=== PATIENT | male | born 1990 | race Caucasian/White ===

== ENCOUNTER 2016-06-03 16:46 | Emergency (ER) | payer MEDICAID ==
[2016-06-03] MEDS ORDERED: HYDROcod/ACETAM 5/325 MG TABLET PO STA (20:29)
[2016-06-03] MEDS ORDERED: CYCLOBENZAPRINE 10 MG TABLET PO STA (20:29)
[2016-06-03] MEDS ORDERED: CYCLOBENZAPRINE 10 MG TABLET PO ONE (20:45)
[2016-06-03] MEDS ORDERED: HYDROcod/ACETAM 5/325 MG TABLET ONE (20:45)
== END 2016-06-03 20:55 | disposition home or self-care (01) ==
DX: M54.6 Pain in thoracic spine (principal); F17.200 Nicotine dependence, unspecified, uncomplicated
CPT/HCPCS: 99283; A9270

== ENCOUNTER 2016-08-11 10:30 | Emergency (ER) | payer MEDICAID ==
[2016-08-11] MEDS ORDERED: IBUPROFEN 800 MG TABLET PO ONE (12:27)
[2016-08-11] MEDS: IBUPROFEN 800 MG TABLET PO STA (12:29)
== END 2016-08-11 14:22 | disposition home or self-care (01) ==
DX: R07.89 Other chest pain (principal); Z82.49 Family history of ischemic heart disease and other diseases of the circulatory system; S29.011A Strain of muscle and tendon of front wall of thorax, initial encounter; X50.0XXA Overexertion from strenuous movement or load, initial encounter; Y93.89 Activity, other specified; Y92.89 Other specified places as the place of occurrence of the external cause; Y99.0 Civilian activity done for income or pay; F17.200 Nicotine dependence, unspecified, uncomplicated
CPT/HCPCS: 36415; 71010; 80053; 83690; 84484; 85025; 93005; 93010; 99283; 99284; A9270

== ENCOUNTER 2017-02-16 07:58 | Emergency (ER) | payer MEDICAID ==
[2017-02-16 08:29] LABS: BILIRUBIN,URINE NEGATIVE (NEGATIVE)
[2017-02-16] MEDS ORDERED: ONDANSETRON 4 MG/2 ML VIAL IVP STA (08:40)
[2017-02-16] MEDS ORDERED: LIDOCAINE PATCH 5% TOP STA (08:40)
[2017-02-16 08:45] LABS: UA CHARGE (STRIP ONLY) YES; UR CULTURE IF IND NOT INDICATED
[2017-02-16] MEDS ORDERED: ONDANSETRON ODT 4 MG TABLET ONE (08:49)
[2017-02-16] MEDS ORDERED: LIDOCAINE PATCH 5% TOP ONE (08:50)
--- NOTE | 2017-02-16 08:51 | ED Physician Documentation ---
History of Present Illness - Stated complaint Stated Complaint: VOMITTING, BACK PX - Chief complaint Chief Complaint: Abd Pain - Additonal information Additional information: hx from pt 26 male NVD for about 3 hr and low left back pain - unclear but seems to have been triggered by retching no urinary sx no blood in stool or vomit no bad food sick contacts or travel Review of Systems Constitutional: denies: Fever, Chills Throat: denies: Sore throat Cardiac: denies: Chest pain / pressure Respiratory: denies: Dyspnea, Cough GI: reports: Nausea, Vomiting, Diarrhea. denies: Abdominal Pain, Hematemesis, Bloody / black stool : denies: Dysuria, Hematuria Musculoskeletal: reports: Back pain. denies: Neck pain Neurologic: denies: Focal weakness, Numbness Endocrine: denies: Easy bruising / bleeding Immunocompromised: denies: Immunocompromised PD PAST MEDICAL HISTORY - Past Medical History Past Medical History: No Respiratory: Asthma - Past Surgical History Past Surgical History: Yes - Present Medications Home Medications: Ambulatory Orders Medication Instructions Recorded Confirmed Ibuprofen [Motrin] 400 mg PO Q6H PRN #30 tablet 02/16/17 Lidocaine Patch 5% [Lidoderm Patch] 1 each TOP DAILY PRN #10 patch 02/16/17 Ondansetron Odt [Zofran] 4 mg TL Q6H PRN #10 tablet 02/16/17 - Allergies Allergies/Adverse Reactions: Allergies Allergy/AdvReac Type Severity Reaction Status Date / Time No Known Drug Allergies Allergy Verified 06/03/16 20:49 - Social History Does the pt smoke?: Yes Smoking Status: Current every day smoker Does the pt drink ETOH?: Yes Does the pt have substance abuse?: No - Immunizations Immunizations are current?: Yes PD ED PE NORMAL - Vitals Vital signs reviewed: Yes - General General: Alert and oriented X 3 - HEENT HEENT: PERRL - Neck Neck: Supple, no meningeal sign - Cardiac Cardiac: RRR - Respiratory Respiratory: No respiratory distress, Clear bilaterally - Abdomen Abdomen: Soft, Non tender - Back Back: No spinal TTP, Other (L low back TTP and limited ROM gold twisting, no focal redness swellign warmth) - Neuro Neuro: No motor deficit, No sensory deficit Results - Vitals Vitals: Vital Signs - 24 hr 09/18/17 09/18/17 08:08 09:19 Temperature 36.9 C 36.4 C L Heart Rate 85 88 Respiratory 16 15 Rate Blood Pressure 136/80 H 114/83 H O2 Saturation 98 97 Oxygen O2 Source Room air - Labs Labs: Laboratory Tests 02/16/17 08:15 Urine Color STRAW Urine Clarity CLEAR Urine pH 6.0 Ur Specific [place] <=1.005 Urine Protein NEGATIVE Urine Glucose (UA) NEGATIVE Urine Ketones NEGATIVE Urine Occult Blood NEGATIVE Urine Nitrite NEGATIVE Urine Bilirubin NEGATIVE Urine Urobilinogen 0.2 (NORMAL) Ur Leukocyte Esterase NEGATIVE Ur Microscopic Review NOT INDICATED Urine Culture Comments NOT INDICATED PD MEDICAL DECISION MAKING - ED course ED course: NVD for few hr with no bad food sick contacts or travel - likely viral - better with zofran back stiull hurts despite lido add motrin seems muscular - no neuro sx dc Departure - Departure Disposition: 01 Home, Self Care Clinical Impression: Diarrhea Qualifiers: Diarrhea type: unspecified type Qualified Code(s): R19.7 - Diarrhea, unspecified Back pain Qualifiers: Back pain location: low back pain Chronicity: acute Back pain laterality: left Sciatica presence: without sciatica Qualified Code(s): M54.5 - Low back pain Vomiting Qualifiers: Vomiting type: unspecified Vomiting Intractability: non-intractable Nausea presence: with nausea Qualified Code(s): R11.2 - Nausea with vomiting, unspecified Condition: Good Instructions: ED Gastroenteritis Viral, ED Neck Back Pain General Prescriptions: Lidocaine Patch 5% [Lidoderm Patch] 1 each TOP DAILY PRN #10 patch PRN Reason: Pain Ibuprofen [Motrin] 400 mg PO Q6H PRN #30 tablet PRN Reason: Pain Ondansetron Odt [Zofran] 4 mg TL Q6H PRN #10 tablet PRN Reason: Nausea / Vomiting Forms: Activity restrictions
[2017-02-16 09:19] VITALS: BP 114/83
[2017-02-16] MEDS ORDERED: IBUPROFEN 400 MG TABLET PO STA (10:16)
[2017-02-16] MEDS ORDERED: ONDANSETRON ODT 4 MG TABLET TL STA (10:18)
[2017-02-16] MEDS ORDERED: IBUPROFEN 400 MG TABLET PO ONE (10:29)
== END 2017-02-16 10:49 | disposition home or self-care (01) ==
LOC: ED 07:58
DX: R11.2 Nausea with vomiting, unspecified (principal); R19.7 Diarrhea, unspecified; M54.5 Low back pain; F17.200 Nicotine dependence, unspecified, uncomplicated
CPT/HCPCS: 81003; 96374; 99283; 99284; A9270; Q0162; 81001; 87086

== ENCOUNTER 2018-05-18 17:31 | Emergency (ER) | payer MEDICAID ==
--- NOTE | 2018-05-18 20:34 | ED Physician Documentation ---
PD HPI UPPER EXT INJURY - Stated complaint Stated Complaint: LT THUMB LAC/INJ - Chief complaint Chief Complaint: Laceration PD PAST MEDICAL HISTORY - Past Medical History Respiratory: Asthma - Past Surgical History Past Surgical History: Yes - Present Medications Home Medications: Ambulatory Orders Medication Instructions Recorded Confirmed Ibuprofen [Motrin] 400 mg PO Q6H PRN #30 tablet 02/16/17 Lidocaine Patch 5% [Lidoderm Patch] 1 each TOP DAILY PRN #10 patch 02/16/17 Ondansetron Odt [Zofran] 4 mg TL Q6H PRN #10 tablet 02/16/17 - Allergies Allergies/Adverse Reactions: Allergies Allergy/AdvReac Type Severity Reaction Status Date / Time No Known Drug Allergies Allergy Verified 06/03/16 20:49 - Social History Does the pt smoke?: Yes Smoking Status: Current every day smoker Does the pt drink ETOH?: Yes Does the pt have substance abuse?: No - Immunizations Immunizations are current?: No Immunizations: TDAP >10years/unknown Results - Vitals Vitals: Vital Signs - 24 hr 05/18/18 17:40 Temperature 36.6 C Heart Rate 88 Respiratory 16 Rate Blood Pressure 134/99 H O2 Saturation 96 Oxygen O2 Source Room air
--- NOTE | 2018-05-18 21:11 | ED Physician Documentation ---
PD HPI UPPER EXT INJURY - Stated complaint Stated Complaint: LT THUMB LAC/INJ - Chief complaint Chief Complaint: Laceration - History obtained from History obtained from: Patient - History of Present Illness Location: Left, Finger (thumb) Type of injury: Laceration (from broken coffee cup; denies FB in wound.) Where injury occurred: Home Timing - onset: Today Associated symptoms: Numbness (distal to the lac). No: Weakness Contributing factors: No: Anticoagulated Similar symptoms before: Has not had sx before Recently seen: Not recently seen Review of Systems Skin: reports: Laceration (s) Neurologic: denies: Near syncope PD PAST MEDICAL HISTORY - Past Medical History Respiratory: Asthma - Past Surgical History Past Surgical History: Yes - Present Medications Home Medications: Ambulatory Orders Medication Instructions Recorded Confirmed Ibuprofen [Motrin] 400 mg PO Q6H PRN #30 tablet 02/16/17 Lidocaine Patch 5% [Lidoderm Patch] 1 each TOP DAILY PRN #10 patch 02/16/17 Ondansetron Odt [Zofran] 4 mg TL Q6H PRN #10 tablet 02/16/17 - Allergies Allergies/Adverse Reactions: Allergies Allergy/AdvReac Type Severity Reaction Status Date / Time No Known Drug Allergies Allergy Verified 06/03/16 20:49 - Social History Does the pt smoke?: Yes Smoking Status: Current every day smoker Does the pt drink ETOH?: Yes Does the pt have substance abuse?: No - Immunizations Immunizations are current?: No Immunizations: TDAP >10years/unknown PD ED PE NORMAL - Vitals Vital signs reviewed: Yes - General General: Alert and oriented X 3, No acute distress, Well developed/nourished - Derm Derm: Normal color, Warm and dry - Extremities Extremities: Other (left thumb with horizontal lac at mid portion distal phalanx palmar side, into the fat pad tissue. No FB. less sensation distal to the lac, on ulnar side. ) Results - Vitals Vitals: Oxygen O2 Source Room air Procedures - Laceration (location) left thumb Length in cm: 1 Wound type: Linear, Into subcut fat, Clean Neurovascular status: Motor intact, Vascular intact. No: Sensory intact (decreased sensation distal to the lac just on ulnar side.) Tendon involvement: No: Tendon Injury Anesthesia: Lidocaine 2% Wound Preparation: Other (cleansed with tap water) Skin layer closure: Nylon, Interrupted, Size #-0 - enter number (4), Sutures - enter # (4) Other: Patient tolerated well, No complications PD MEDICAL DECISION MAKING - ED course Complexity details: considered differential, d/w patient Departure - Departure Disposition: 01 Home, Self Care Clinical Impression: Thumb laceration Qualifiers: Encounter type: initial encounter Damage to nail status: without damage Foreign body presence: without foreign body Laterality: left Qualified Code(s): S61.012A - Laceration without foreign body of left thumb without damage to nail, initial encounter Condition: Stable Record reviewed to determine appropriate education?: Yes Instructions: ED Laceration Hand Comments: It is okay to wash and shower. Clean off the wound twice a day with soap and water, or peroxide and water. Apply some antibiotic ointment to it to keep it moist. Also to watch for signs of infection such as purulence, redness or increasing pain. Return to your primary care or the ER at the specified time for suture removal. Suture removal 8-10 days. Tylenol or ibuprofen if needed for pains. Discharge Date/Time: 05/18/18 21:43
[2018-05-18 21:43] VITALS: BP 128/78
== END 2018-05-18 21:43 | disposition home or self-care (01) ==
LOC: ED 17:31
DX: S61.012A Laceration without foreign body of left thumb without damage to nail, initial encounter (principal); W45.8XXA Other foreign body or object entering through skin, initial encounter; Y92.009 Unspecified place in unspecified non-institutional (private) residence as the place of occurrence of the external cause; F17.200 Nicotine dependence, unspecified, uncomplicated
CPT/HCPCS: 12001; 99282; 99283

== ENCOUNTER 2019-09-06 13:15 | Emergency (ER) | payer MEDICAID ==
--- NOTE | 2019-09-06 13:21 | ED Physician Documentation ---
PD HPI NVD - Stated complaint Stated Complaint: NVD - History obtained from History obtained from: Patient - History of Present Illness Timing - onset: How many days ago (6) Timing - duration: Days (6) Timing - details: Abrupt onset, Still present (had nausea and diarrhea abruptly for 2 days, then decreased symptoms. Keeping some fluids down. But diarrhea persisted and then with nausea again yesterday, vomited again overnight. Thought he would be better by now. with similar symptoms started day before him and is mostly better now.) Associated symptoms: Abdominal pain (cramping initially, and now with upper pains.). No: Fever, Chest pain, Near syncope / syncope Contributing factors: Sick contact ( with similar but kids are not ill.). No: Bad food, Travel, Recent antibiotics Similar symptoms before: Has not had sx before Review of Systems Constitutional: reports: Myalgias. denies: Fever, Chills Nose: denies: Rhinorrhea / runny nose, Congestion Throat: denies: Sore throat Respiratory: denies: Cough GI: reports: Abdominal Pain (cramping intermittent, and now some upper abd pains with vomiting.), Nausea, Vomiting, Diarrhea. denies: Abdominal Swelling, Hematemesis, Bloody / black stool Skin: denies: Rash, Lesions Neurologic: reports: Generalized weakness. denies: Focal weakness, Numbness, Near syncope PD PAST MEDICAL HISTORY - Past Medical History Respiratory: Asthma GI: None - Past Surgical History Past Surgical History: Yes - Present Medications Home Medications: Ambulatory Orders Medication Instructions Recorded Confirmed Dicyclomine HCl 10 mg PO TID PRN #12 capsule 09/06/19 Diphenoxylate/Atropine [Lomotil] 1 each PO QID PRN #16 tablet 09/06/19 Famotidine 20 mg PO DAILY #15 tablet 09/06/19 Ondansetron Odt [Zofran] 4 mg TL Q6H PRN #15 tablet 09/06/19 - Allergies Allergies/Adverse Reactions: Allergies Allergy/AdvReac Type Severity Reaction Status Date / Time No Known Drug Allergies Allergy Verified 09/06/19 13:18 - Social History Does the pt smoke?: Yes Smoking Status: Current every day smoker Does the pt drink ETOH?: Yes Does the pt have substance abuse?: No - Immunizations Immunizations are current?: No Immunizations: TDAP >10years/unknown PD ED PE NORMAL - Vitals Vital signs reviewed: Yes - General General: Alert and oriented X 3, No acute distress, Well developed/nourished - HEENT HEENT: Pharynx benign. No: Moist mucous membranes - Neck Neck: Supple, no meningeal sign, No adenopathy - Cardiac Cardiac: RRR, No murmur - Respiratory Respiratory: Clear bilaterally - Abdomen Abdomen: Normal bowel sounds, Soft, Non distended, No organomegaly, Other (some tender in upper abd without guarding nor percussion tenderness. ) - Back Back: No CVA TTP - Derm Derm: Normal color, Warm and dry - Extremities Extremities: No deformity, No tenderness to palpate - Neuro Neuro: Alert and oriented X 3, No motor deficit, Normal speech Results - Vitals Vitals: Vital Signs - 24 hr 09/06/19 09/06/19 09/06/19 13:18 13:42 14:55 Temperature 36.8 C 36.8 C Heart Rate 91 86 68 Respiratory 18 16 Rate Blood Pressure 120/74 130/83 H 115/53 L O2 Saturation 97 99 100 09/06/19 15:55 Temperature Heart Rate 60 Respiratory 17 Rate Blood Pressure 127/78 O2 Saturation 100 Oxygen O2 Source Room air - Labs Labs: Laboratory Tests 09/06/19 09/06/19 13:50 13:50 WBC 8.8 RBC 5.19 Hgb 16.2 Hct 47.0 MCV 90.6 MCH 31.2 H MCHC 34.5 RDW 12.3 Plt Count 265 MPV 9.8 Neut # (Auto) 5.6 Lymph # (Auto) 2.3 Jenkins # (Auto) 0.4 Eos # (Auto) 0.3 Baso # (Auto) 0.0 Absolute Nucleated RBC 0.00 Nucleated RBC % 0.0 Sodium 137 Potassium 4.4 Chloride 103 Carbon Dioxide 28 Anion Gap 6.0 BUN 12 Creatinine 1.0 Estimated GFR (MDRD) 90 Glucose 103 H Calcium 9.6 Total Bilirubin 1.8 H AST 24 ALT 31 Alkaline Phosphatase 68 Total Protein 8.1 Albumin 4.5 Globulin 3.6 Albumin/Globulin Ratio 1.3 Lipase 29 PD MEDICAL DECISION MAKING - ED course Complexity details: re-evaluated patient (abd not tender in lower abd still. Some in epigastric area. No peritoneal signs. I did not feel imaging needed. ), considered differential, d/w patient Departure - Departure Disposition: 01 Home, Self Care Clinical Impression: Nausea vomiting and diarrhea, Dehydration Condition: Stable Record reviewed to determine appropriate education?: Yes Instructions: ED Gastroenteritis Vs Food Poison Prescriptions: Dicyclomine HCl 10 mg PO TID PRN #12 capsule PRN Reason: Abdominal Pain Diphenoxylate/Atropine [Lomotil] 1 each PO QID PRN #16 tablet PRN Reason: Diarrhea Famotidine 20 mg PO DAILY #15 tablet Ondansetron Odt [Zofran] 4 mg TL Q6H PRN #15 tablet PRN Reason: Nausea / Vomiting Comments: Ondansetron if needed for nausea. Lomotil for diarrhea as needed. Use Tylenol if needed for pains or cramps and you can also use dicyclomine for intestinal cramps. Small frequent fluids and bland food initially and progress as tolerated. Your stomach would be irritated from having been throwing up for several days so take some acid reducing medicine such as famotidine daily for a week or so. Recheck if not improving well into tomorrow or the next day. I wrote a work note for tomorrow if needed. If the symptoms, particularly diarrhea, extend into another 3 to 5 days, then bring us sample of the diarrhea with you for recheck and we can test specifically for bacterial type infections Forms: Activity restrictions Discharge Date/Time: 09/06/19 16:27
[2019-09-06] MEDS ORDERED: SODIUM CHLORIDE 0.9% 1,000 ML IV ONE ×2 (13:45→13:46)
[2019-09-06] MEDS ORDERED: ONDANSETRON 4 MG/2 ML VIAL IVP STA ×2 (13:45→15:12)
[2019-09-06] MEDS ORDERED: FAMOTIDINE 20 MG/2 ML VIAL IVP STA (13:45)
[2019-09-06] MEDS ORDERED: KETOROLAC 15 MG/ML VIAL IVP STA (13:45)
[2019-09-06] MEDS ORDERED: DIPHENOX/ATROPINE 2.5/0.025 MG TABLET PO STA (13:45)
[2019-09-06 14:01] LABS: BASOPHILS % (AUTO) 0.5 %; EOSINOPHILS # (AUTO) 0.3 10^3/uL (0.0-0.7); EOSINOPHILS % (AUTO) 3.9 %; HGB - HEMOGLOBIN 16.2 g/dL (14.0-18.0); LYMPHOCYTES # (AUTO) 2.3 10^3/uL (1.5-3.5); LYMPHOCYTES % (AUTO) 26.5 %; MEAN CORPUSCULAR HEMOGLOBIN 31.2 pg (27.0-31.0); MEAN CORPUSCULAR HGB CONC 34.5 g/dL (32.0-36.0); MEAN CORPUSCULAR VOLUME 90.6 fL (80.0-94.0); MEAN PLATELET VOLUME 9.8 fL (7.4-11.4); MONOCYTES # (AUTO) 0.4 10^3/uL (0.0-1.0); MONOCYTES % (AUTO) 4.9 %; NEUTROPHILS # (AUTO) 5.6 10^3/uL (1.5-6.6); NEUTROPHILS % (AUTO) 63.4 %; PLT - PLATELET COUNT 265 10^3/uL (130-450); RED BLOOD COUNT 5.19 10^6/uL (4.70-6.10); RED CELL DISTRIBUTION WIDTH 12.3 % (12.0-15.0); WHITE BLOOD COUNT 8.8 x10^3/uL (4.8-10.8)
[2019-09-06 14:13] LABS: ALBUMIN 4.5 g/dL (3.2-5.5); ALBUMIN/GLOBULIN RATIO 1.3 (1.0-2.2); BILIRUBIN,TOTAL 1.8 mg/dL (0.2-1.0); CALCIUM 9.6 mg/dL (8.5-10.3); TOTAL PROTEIN 8.1 g/dL (6.7-8.2)
[2019-09-06 15:55] VITALS: BP 127/78
== END 2019-09-06 16:27 | disposition home or self-care (01) ==
LOC: ED 13:15
DX: E86.0 Dehydration (principal); R11.2 Nausea with vomiting, unspecified; R19.7 Diarrhea, unspecified; F17.200 Nicotine dependence, unspecified, uncomplicated
CPT/HCPCS: 36415; 80053; 83690; 85025; 96361; 96374; 96375; 99283; A9270

== ENCOUNTER 2020-02-07 11:39 | Emergency (ER) | payer MEDICAID ==
[2020-02-07 11:52] VITALS: BP 123/77
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
[2020-02-07] MEDS ORDERED: TETANUS/DIPHTHERIA/PERTUSSIS 0.5 ML SYRINGE IM ONE (13:15)
[2020-02-07] MEDS ORDERED: SILVER SULFADIAZINE CREAM 25 GM TUBE TOP STA (13:20)
== END 2020-02-07 13:51 | disposition home or self-care (01) ==
LOC: ED 11:39
DX: T24.331A Burn of third degree of right lower leg, initial encounter (principal); X15.8XXA Contact with other hot household appliances, initial encounter; Y93.89 Activity, other specified; F17.200 Nicotine dependence, unspecified, uncomplicated
CPT/HCPCS: 90471; 90715; 99283; 99284; A9270

== ENCOUNTER 2020-02-10 14:08 | Outpatient (CLI) | payer MEDICAID | END 2020-02-10 14:09 | disposition home or self-care (01) | LOC: COV 14:08 | PROVIDERS: ATTEND Surgery | DX: Z01.818 Encounter for other preprocedural examination (principal); T24.33 Burn of third degree of lower leg; Z20.828 Contact with and (suspected) exposure to other viral communicable diseases ==

== ENCOUNTER 2020-02-13 12:19 | Day surgery (SDC) | payer MEDICAID ==
[2020-02-13] MEDS ORDERED: LIDOCAINE-MPF 2% 5 ML VIAL IM ONE (12:20)
[2020-02-13] MEDS ORDERED: PROPOFOL 200 MG/20 ML VIAL IVP ONE (12:20)
[2020-02-13] MEDS ORDERED: MIDAZOLAM 2 MG/2 ML VIAL IVP ONE (12:20)
[2020-02-13] MEDS ORDERED: LACTATED RINGERS 1,000 ML IV ONE ×3 (12:57→16:12)
[2020-02-13] MEDS ORDERED: CEFAZOLIN SODIUM IN 0.9 % NACL 2 GM/100 ML BAG IV ONE (13:04)
[2020-02-13] MEDS ORDERED: LIDOCAINE 1%-EPI 1:100000 20 ML MDV ONE (15:16)
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
[2020-02-13] MEDS ORDERED: BUPIVACAINE 0.25%-EPI 1:200000 PF 30 ML VIAL ONE (15:17)
[2020-02-13] MEDS ORDERED: LIDOCAINE 1%-EPI 1:100000 20 ML MDV SUBQ ONE ×2 (15:33→16:02)
[2020-02-13] MEDS ORDERED: BUPIVACAINE 0.5%-EPI 1:200000 PF 30 ML VIAL SUBQ ONE ×2 (15:33→16:01)
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
[2020-02-13] MEDS ORDERED: MORPHINE 2 MG/ML CARPUJECT IVP PRN (16:30)
[2020-02-13] MEDS ORDERED: METOCLOPRAMIDE 10 MG/2 ML VIAL IVP PRN (16:30)
[2020-02-13] MEDS ORDERED: fentaNYL 100 MCG/2 ML VIAL IVP PRN (16:30)
[2020-02-13] MEDS ORDERED: ATROPINE ABBOJECT 1 MG/10 ML SYRINGE IVP PRN (16:30)
[2020-02-13] MEDS ORDERED: ePHEDrine 50 MG/ML VIAL IVP PRN (16:30)
[2020-02-13] MEDS ORDERED: NALOXONE 0.4 MG/ML VIAL IVP PRN (16:30)
[2020-02-13] MEDS ORDERED: ONDANSETRON 4 MG/2 ML VIAL IVP PRN (16:30)
[2020-02-13] MEDS ORDERED: HYDROmorphone 0.5 MG/0.5 ML SYRINGE IVP PRN (16:30)
[2020-02-13 16:52] VITALS: BP 112/81
[2020-02-13] MEDS ORDERED: LACTATED RINGERS 1,000 ML IV SCH (17:00)
--- NOTE | 2020-02-13 17:30 | ANESTHESIA POST OP EVALUATION ---
Anesthesia Post Eval - Post Anesthesia Eval Vitals: Last Vital Signs Temp 36.2 C L 02/13/20 16:51 Pulse 79 02/13/20 16:51 Resp 16 02/13/20 16:51 BP 112/81 H 02/13/20 16:51 Pulse Ox 99 02/13/20 16:51 CV Function Including HR & BP: positive: Stable Pain Control: positive: Satisfactory Nausea & Vomiting: positive: Negative Mental Status: positive: Patient Participates Respiratory Status: Airway Patent Hydration Status: Satisfactory Anesthesia Complications: positive: None
== END 2020-02-13 12:20 | disposition home or self-care (01) ==
LOC: SDS 12:19
PROVIDERS: ATTEND Surgery
PROC: 0HBKXZZ Excision of Right Lower Leg Skin, External Approach (ICD-10-PCS; principal; 2020-02-13 14:00)
DX: L90.5 Scar conditions and fibrosis of skin (principal); T24.33 Burn of third degree of lower leg; T79.8XXS Other early complications of trauma, sequela; X03 Exposure to controlled fire, not in building or structure; E66.01 Morbid (severe) obesity due to excess calories; Z68.41 Body mass index [BMI] 40.0-44.9, adult; F17.210 Nicotine dependence, cigarettes, uncomplicated
CPT/HCPCS: 11406; 12032; J0690; J7120

== ENCOUNTER 2021-10-10 15:15 | Emergency (ER) | payer MEDICAID ==
--- NOTE | 2021-10-10 15:58 | ED Physician Documentation ---
History of Present Illness - Stated complaint Stated Complaint: SOA/CHEST TIGHTNESS - Chief complaint Chief Complaint: Cardiac - Additonal information Additional information: 31-year-old male presents emergency department for evaluation of chest pain and shortness of air. 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 He did state that he also had some right-sided abdominal pain. No fevers nausea or vomiting. He states that he was sweaty. Pain lasted about 10 minutes before subsiding. He is an obese gentleman but denies any history of hypertension or diabetes. Non-smoker. States that his grandfather had a heart attack at 44 years of age. No recent travel, hormone use surgeries or immobilization. Patient is PERC negative. Review of Systems Constitutional: denies: Fever, Chills Eyes: reports: Reviewed and negative Nose: reports: Reviewed and negative Throat: reports: Reviewed and negative Cardiac: reports: Chest pain / pressure. denies: Palpitations, Pedal edema, Calf pain Respiratory: reports: Dyspnea. denies: Cough, Hemoptysis, Wheezing GI: reports: Reviewed and negative : reports: Reviewed and negative Skin: reports: Reviewed and negative PD PAST MEDICAL HISTORY - Past Medical History Past Medical History: Yes Cardiovascular: None Respiratory: Asthma Neuro: Headaches, Migraines Endocrine/Autoimmune: None GI: None : None HEENT: Chronic vision loss Psych: Depression, Anxiety, Panic attacks Musculoskeletal: None Derm: None - Past Surgical History Past Surgical History: Yes Ortho: Other - Present Medications Home Medications: Ambulatory Orders Medication Instructions Recorded Confirmed cephALEXin [Keflex] 500 mg PO QID 02/10/20 02/10/20 Ondansetron Odt [Zofran Odt] 4 mg TL Q6H PRN #10 tablet 02/13/20 oxyCODONE [Roxicodone] 5 mg PO Q4-6H PRN #14 tablet 02/13/20 - Allergies Allergies/Adverse Reactions: Allergies Allergy/AdvReac Type Severity Reaction Status Date / Time No Known Drug Allergies Allergy Verified 02/07/20 11:48 - Social History Does the pt smoke?: No Smoking Status: Former smoker Does the pt drink ETOH?: Yes Does the pt have substance abuse?: No - Immunizations Immunizations are current?: No Immunizations: TDAP >10years/unknown - POLST Patient has POLST: No PD ED PE NORMAL - General General: Alert and oriented X 3, No acute distress, Well developed/nourished, Other (Obese) - HEENT HEENT: Atraumatic, Ears normal, Moist mucous membranes - Neck Neck: Supple, no meningeal sign, No adenopathy - Cardiac Cardiac: RRR, No murmur, No gallop - Respiratory Respiratory: No respiratory distress, Clear bilaterally - Abdomen Abdomen: Normal bowel sounds, Soft, Non tender - Back Back: No CVA TTP, No spinal TTP - Derm Derm: Normal color, Warm and dry - Extremities Extremities: No deformity, No tenderness to palpate, Normal ROM s pain - Neuro Neuro: Alert and oriented X 3, exercise planner 2-12 intact, No motor deficit Eye Opening: Spontaneous Motor: Obeys Commands Verbal: Oriented GCS Score: 15 - Psych Psych: Normal mood Results - Vitals Vitals: Vital Signs - 24 hr 10/10/21 10/10/21 15:21 15:30 Temperature 36.4 C L Heart Rate 86 81 Respiratory 16 20 Rate Blood Pressure 138/94 H 146/84 H Blood Pressure 146/84 H [Right] O2 Saturation 98 98 Oxygen O2 Source Room air - EKG (time done) 1538 Rate: Rate (enter#) (83) Rhythm: NSR [place]: Normal Intervals: Normal MA QRS: Normal Ischemia: Non specific changes Compare to prior EKG: Old EKG unavailable Computer interpretation: Agree with computer - Labs Labs: Laboratory Tests 10/10/21 10/10/21 10/10/21 15:30 15:30 15:30 WBC 8.4 RBC 4.81 Hgb 14.4 Hct 42.2 MCV 87.7 MCH 29.9 MCHC 34.1 RDW 12.1 Plt Count 274 MPV 9.9 Neut # (Auto) 5.4 Lymph # (Auto) 2.2 [place] # (Auto) 0.4 Eos # (Auto) 0.3 Baso # (Auto) 0.0 Absolute Nucleated RBC 0.00 Nucleated RBC % 0.0 Sodium 136 Potassium 4.0 Chloride 101 Carbon Dioxide 25 Anion Gap 10.0 BUN 15 Creatinine 0.9 Estimated GFR (MDRD) 100 Glucose 96 Calcium 9.3 Total Bilirubin 0.8 AST 28 ALT 40 Alkaline Phosphatase 82 Troponin I High Sens 3.6 Total Protein 7.4 Albumin 4.1 Globulin 3.3 Albumin/Globulin Ratio 1.2 Lipase 36 PD MEDICAL DECISION MAKING - ED course Complexity details: reviewed results, re-evaluated patient, considered differential, d/w patient ED course: 31-year-old male presents emergency department for evaluation of about 10 minutes of chest discomfort that occurred while he was pulling 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 No history of hypertension diabetes. He is moderately obese however. His screening EKG was nonischemic. Screening labs including high-sensitivity troponin are negative. These findings have been discussed with the patient. Given lack of cough or fever chest x-ray was deferred I have low suspicion for pneumonia. Patient is PERC negative. Did consider costochondritis though the chest pain was not reproduced on exam. He is advised close follow-up with primary care provider otherwise emergent return precautions discussed. Departure - Departure Disposition: 01 Home, Self Care Clinical Impression: Discomfort in chest Condition: Stable Record reviewed to determine appropriate education?: Yes Comments: You are seen today in the emergency department for the development of some chest discomfort that occurred while pulling At work. Your screening EKG and labs are all essentially normal. Given your age it is very unlikely that you are having a heart attack or heart attack like event. I do recommend modest weight loss. You should discuss this ED visit with your primary care provider. If at any point you develop a return of symptoms, have sudden severe or different chest pain or any fainting episodes you should return immediately to the ER for repeat evaluation
[2021-10-10 15:59] LABS: BASOPHILS % (AUTO) 0.4 %; EOSINOPHILS # (AUTO) 0.3 10^3/uL (0.0-0.7); EOSINOPHILS % (AUTO) 3.2 %; HCT - HEMATOCRIT 42.2 % (42.0-52.0); HGB - HEMOGLOBIN 14.4 g/dL (14.0-18.0); LYMPHOCYTES # (AUTO) 2.2 10^3/uL (1.5-3.5); LYMPHOCYTES % (AUTO) 26.5 %; MEAN CORPUSCULAR HEMOGLOBIN 29.9 pg (27.0-31.0); MEAN CORPUSCULAR HGB CONC 34.1 g/dL (32.0-36.0); MEAN CORPUSCULAR VOLUME 87.7 fL (80.0-94.0); MEAN PLATELET VOLUME 9.9 fL (7.4-11.4); MONOCYTES # (AUTO) 0.4 10^3/uL (0.0-1.0); MONOCYTES % (AUTO) 5.1 %; NEUTROPHILS # (AUTO) 5.4 10^3/uL (1.5-6.6); NEUTROPHILS % (AUTO) 64.2 %; PLT - PLATELET COUNT 274 10^3/uL (130-450); RED BLOOD COUNT 4.81 10^6/uL (4.70-6.10); RED CELL DISTRIBUTION WIDTH 12.1 % (12.0-15.0); WHITE BLOOD COUNT 8.4 x10^3/uL (4.8-10.8)
[2021-10-10 16:18] LABS: ALBUMIN 4.1 g/dL (3.2-5.5); ALBUMIN/GLOBULIN RATIO 1.2 (1.0-2.2); BILIRUBIN,TOTAL 0.8 mg/dL (0.2-1.0); CALCIUM 9.3 mg/dL (8.5-10.3); CREATININE 0.9 mg/dL (0.6-1.2); TOTAL PROTEIN 7.4 g/dL (6.7-8.2)
[2021-10-10 17:38] VITALS: BP 144/110
== END 2021-10-10 17:38 | disposition home or self-care (01) ==
LOC: ED 15:15
DX: R07.9 Chest pain, unspecified (principal); Z87.891 Personal history of nicotine dependence
CPT/HCPCS: 36415; 80053; 83690; 84484; 85025; 93005; 99282; 99283

== ENCOUNTER 2023-03-28 03:07 | Emergency (ER) | payer MEDICAID ==
[2023-03-28] MEDS ORDERED: KETOROLAC 60 MG/2 ML VIAL IM STA (03:29)
[2023-03-28] MEDS ORDERED: CYCLOBENZAPRINE 10 MG Prepack 2 PO PRN (03:29)
--- NOTE | 2023-03-28 03:30 | ED Physician Documentation ---
History of Present Illness - Stated complaint Stated Complaint: BACK PX - Chief complaint Chief Complaint: Back Pain - History obtained from History obtained from: Patient - Additonal information Additional information: 32-year-old man, previously healthy with history of heavy lifting presents with right mid back pain waking him from sleep as aching, constant, worse with bending and pressing on the area. Aching quality. denies urinary sx, fever, or midline pain. denies fnd PD PAST MEDICAL HISTORY - Past Medical History Past Medical History: Yes Cardiovascular: None Respiratory: Asthma Neuro: Headaches, Migraines Endocrine/Autoimmune: None GI: None : None HEENT: Chronic vision loss Psych: Depression, Anxiety, Panic attacks Musculoskeletal: None Derm: None - Past Surgical History Past Surgical History: Yes Ortho: Other - Present Medications Home Medications: Ambulatory Orders Medication Instructions Recorded Confirmed cephALEXin [Keflex] 500 mg PO QID 02/10/20 02/10/20 Ondansetron Odt [Zofran Odt] 4 mg TL Q6H PRN #10 tablet 02/13/20 oxyCODONE [Roxicodone] 5 mg PO Q4-6H PRN #14 tablet 02/13/20 - Allergies Allergies/Adverse Reactions: Allergies Allergy/AdvReac Type Severity Reaction Status Date / Time No Known Drug Allergies Allergy Verified 03/28/23 03:17 - Social History Does the pt smoke?: No Smoking Status: Never smoker Does the pt drink ETOH?: Yes Does the pt have substance abuse?: No - Immunizations Immunizations are current?: No Immunizations: TDAP >10years/unknown - POLST Patient has POLST: No PD ED PE NORMAL - Vitals Vital signs reviewed: Yes - General General: Alert and oriented X 3, No acute distress, Well developed/nourished - HEENT HEENT: Atraumatic, PERRL, EOMI - Back Back: No CVA TTP, No spinal TTP, Other (R midback tender in paraspinal muscle distribution) - Derm Derm: Normal color, Warm and dry - Extremities Extremities: Other (CSM intact all extremities) Results - Vitals Vitals: Vital Signs - 24 hr 03/28/23 03:15 Temperature 36.9 C Heart Rate 90 Respiratory 18 Rate Blood Pressure 158/118 H O2 Saturation 98 Oxygen O2 Source Room air PD Medical Decision Making - ED course ED course: 32-year-old man presents to the emergency department with right mid back pain, improving with IM Toradol. Suspect musculoskeletal origin given his heavy lifting at work. For clinical picture of kidney stones given that it is aching and dull, not sharp and intermittent and patient is resting quietly in bed. No neurodeficits or midline spinal tenderness. Flexeril prepack provided since he is driving and he can take it at home. Advised follow-up outpatient with walk- in clinic if he is not better in the morning. Return precautions given. Departure - Departure Disposition: 01 Home, Self Care Clinical Impression: Back pain Condition: Stable Instructions: ED Low Back Pain Injury Comments: You were seen in the emergency department for R midback pain. You received toradol and flexeril for pain. Please follow-up with your primary care provider or walk in clinic and return to the emergency department if you have any new or worsening symptoms or other concerns.
[2023-03-28 03:49] VITALS: BP 130/82; O2SAT 100
== END 2023-03-28 03:48 | disposition home or self-care (01) ==
LOC: ED 03:07
DX: M54.6 Pain in thoracic spine (principal)
CPT/HCPCS: 96372; 99283